=== PATIENT | female | born 1990 | race Caucasian/White ===

== ENCOUNTER 2017-06-16 07:43 | Emergency (ER) | payer BC, MEDICAID, OTHER ==
[2017-06-16 08:35] LABS: ABSOLUTE BASOPHILS # (AUTO) 0.1 10^3/uL (0.0-0.2); ABSOLUTE EOSINOPHILS # (AUTO) 0.1 10^3/uL (0.0-0.6); ABSOLUTE MONOCYTES (AUTO) 0.5 10^3/uL (0.1-1.4); ABSOLUTE NEUT (AUTO) 5.4 10^3/uL (1.7-8.2); EOSINOPHILS % (AUTO) 1.3 % (0-6); HEMATOCRIT 36.4 % (36.0-47.0); LYMPHOCYTES % (AUTO) 33.4 % (13-45); MEAN CORPUSCULAR HEMOGLOBIN 28.7 pg (27.0-33.4); MEAN CORPUSCULAR HGB CONC 33.1 g/dL (32.0-36.0); MEAN CORPUSCULAR VOLUME 87 fl (80-97); MONOCYTES % (AUTO) 5.1 % (3-13); PLATELET COUNT 315 10^3/uL (150-450); RED BLOOD COUNT 4.19 10^6/uL (3.72-5.28); RED CELL DISTRIBUTION WIDTH 15.2 % (11.5-14.0); SEGMENTED NEUTROPHILS % (AUTO) 59.2 % (42-78); TOTAL CELLS COUNTED % (AUTO) 100 %; WHITE BLOOD COUNT 9.1 10^3/uL (4.0-10.5)
[2017-06-16 08:46] LABS: APPEARANCE,URINE SLIGHTLY HAZY; BILIRUBIN,URINE NEGATIVE (NEGATIVE); COLOR,URINE LIGHT YELLOW; GLUCOSE, URINE NEGATIVE (NEGATIVE); KETONES,URINE NEGATIVE (NEGATIVE); LEUKOCYTE ESTERASE,URINE LARGE (NEGATIVE); NITRITE,URINE NEGATIVE (NEGATIVE); PROTEIN,URINE NEGATIVE (NEGATIVE); URINE SPECIFIC GRAVITY 1.021; UROBILINOGEN,URINE NEGATIVE mg/dL (<2.0)
[2017-06-16 08:52] LABS: ANION GAP 12 (5-19); BLOOD UREA NITROGEN 20 mg/dL (7-20); CALCIUM 9.5 mg/dL (8.4-10.2); CARBON DIOXIDE 22 mmol/L (22-30); CHLORIDE 105 mmol/L (98-107); GLUCOSE 89 mg/dL (75-110); POTASSIUM 4.2 mmol/L (3.6-5.0); SODIUM 138.5 mmol/L (137-145)
--- NOTE | 2017-06-16 10:09 | ER Document Report ---
ED Medical Screen (RME) - General Chief Complaint: Blood Pressure Problem Stated Complaint: BLOOD PRESSURE ISSUE, SHORT OF BREATH Notes: 27-year-old female states that she thinks she is maybe 5-6 weeks and is having some high blood pressure and swelling already and wants to be checked out. Also complained of some shortness of breath. No fever chills or sweats. Intermittent cough at times. I have greeted and performed a rapid initial assessment of this patient. A comprehensive ED assessment and evaluation of the patient, analysis of test results and completion of the medical decision making process will be conducted by additional ED providers. TRAVEL OUTSIDE OF THE [place] IN LAST 30 DAYS: No - Related Data Allergies/Adverse Reactions: No Known Allergies Allergy (Unverified 06/16/17 07:44) Past Medical History - General Information source: Patient - Social History Frequency of alcohol use: None Drug Abuse: None Lives with: Spouse/Significant other Family history: Reviewed & Not Pertinent - Past Medical History Cardiac Medical History: Reports: Hx Hypertension - gestational htn, Other - Hypertension in Pulmonary Medical History: Reports: None Neurological Medical History: Reports: None Endocrine Medical History: Reports: None Renal/ Medical History: Reports: None. Denies: Hx Peritoneal Dialysis Malignancy Medical History: Reports: None Past Surgical History: Reports: Hx Appendectomy, Hx Gynecologic Surgery - 1/2 left ovary removed Review of Systems - Review of Systems Constitutional: denies: Fever, Malaise, Weakness EENT: No symptoms reported Cardiovascular: Palpitations, Heart racing, Dyspnea, Lightheaded Respiratory: Short of breath. denies: Hurts to breathe, Wheezing Gastrointestinal: denies: Abdomen distended, Abdominal pain, Diarrhea, Nausea, Vomiting Female Genitourinary: . denies: Vaginal discharge, Vaginal bleeding Musculoskeletal: Ankle swelling. denies: Back pain, Joint pain, Joint swelling , Leg swelling Hematologic/Lymphatic: denies: Anemia, Blood clots, Easy bleeding, Easy bruising Physical Exam - Vital signs Vitals: Temp Pulse Resp BP Pulse Ox 98.4 F 115 H 20 149/90 H 100 06/16/17 07:48 06/16/17 07:48 06/16/17 07:48 06/16/17 07:48 06/16/17 07:48 Interpretation: Normal - Notes Notes: General: Alert no acute distress HEENT: Atraumatic, normocephalic, pupils equal round react to light and accommodation, extraocular muscles are intact, nose is non tender, posterior pharynx is without erythema or exudate. Tongue is unremarkable Heart: Heart with regular rate and rhythm, tachycardia, no murmurs, no rubs, no clicks Lungs: Lungs clear to auscultation bilaterally, no wheezes, rhonchi, rales Abdomen: Abdomen is soft, nontender, nondistended, normal bowel sounds Neuro: cranial nerves II through XII intact, reflexes intact, sensation intact, Extremities:Moving all extremities. Equal strength bilaterally in the upper lower extremities. No significant deformity Skin: No lesions. Skin intact Psych: Normal insight. Normal judgment - General General appearance: Appears well, Alert Course - Vital Signs Vital signs: Temp Pulse Resp BP Pulse Ox 98.4 F 115 H 29 H 139/89 H 100 06/16/17 07:48 06/16/17 07:48 06/16/17 08:05 06/16/17 08:05 06/16/17 08:05 - Laboratory Result Diagrams: 06/16/17 08:20 06/16/17 08:20 Laboratory results interpreted by me: 06/16/17 06/16/17 06/16/17 08:20 08:20 08:20 RDW 15.2 H Beta HCG, Quant 8694.90 H Ur Leukocyte Esterase LARGE H - EKG Interpretation by Ms EKG shows normal: [place], Intervals, QRS Complexes, ST-T Waves Rate: Tachycardia Doctor's Discharge - Discharge Referrals: SAGAR MOHAMUD MD [Primary Care Provider] - Follow up as needed
[2017-06-16 10:53] LABS: NT PRO BNP 19 pg/mL (<125)
[2017-06-16 10:54] LABS: TROPONIN I < 0.012 ng/mL
--- NOTE | 2017-06-16 13:04 | EKG REPORT ---
SEVERITY:- BORDERLINE ECG - SINUS TACHYCARDIA BORDERLINE T WAVE ABNORMALITIES : Confirmed by: Ruben Kevin MD 16-Jun-2017 13:04:07
--- NOTE | 2017-06-16 14:43 | RADIOLOGY REPORT (SQ) ---
EXAM DESCRIPTION: CTA CHEST COMPLETED DATE/TIME: 06/16/2017 2:30 pm REASON FOR STUDY: , short of breath, tachycardia COMPARISON: None. TECHNIQUE: CT scan of the chest performed using helical scanning technique with dynamic intravenous contrast injection. Images reviewed with lung, soft tissue and bone windows. Reconstructed coronal and sagittal MPR images reviewed. Additional 3 dimensional post-processing performed to develop Maximal Intensity Projection images ([place] P). All images stored on PACS. All CT scanners at this facility use dose modulation, iterative reconstruction, and/or weight based d osing when appropriate to reduce radiation dose to as low as reasonably achievable (ALARA). [facility]: Dose Right [facility]: CareDose [facility]: Dose Right [facility]: Teradose 4D [facility]: [employer] CONTRAST TYPE AND DOSE: contrast/concentration: Isovue 370.00 mg/ml; Total Contrast Delivered: 66.0 ml; Total Saline Delivered: 73.0 ml Contrast bolus optimized for the pulmonary arteries. Not diagnostic for the aorta. RENAL FUNCTION: None required. The patient is less than 50 years old. RADIATION DOSE: CT Rad equipment meets quality standard of care and radiation dose reduction techniq ues were employed. CTDIvol: 16.5 - 18.1 mGy. DLP: 570 mGy-cm. . LIMITATIONS: None. FINDINGS: LUNGS AND PLEURA: No masses, infiltrates, pneumothorax. No pleural effusions, calcificati ons. AORTA AND GREAT VESSELS: No aneurysm. Contrast bolus not optimized for the aorta. HEART: No pericardial effusion. No significant coronary artery calcifications. PULMONARY ARTERIES: No emboli visualized in the main pulmonary arteries or the segmental branches. HILAR AND MEDIASTINAL STRUCTURES: No identified masses or abnormal nodes. HARDWARE: None in the chest. UPPER ABDOMEN: No significant findings. Limited exam. THYROID AND OTHER SOFT TISSUES: No masses. No adenopathy. BONES: No acute or significant finding. 3D MIPS: Confirm above findings. OTHER: No other significant finding. IMPRESSION: NORMAL CTA OF THE CHEST. NO PULMONARY EMBOLI. COMMENT: Quality ID # [id number]: Final reports with documentation of one or more dose reduction techniques (e.g., Automated exposure control, adjustment of the mA and/or kV according to patient size, use of iterative reconstruction technique) TECHNICAL DOCUMENTATION: JOB ID: [id number] [employer]- All Rights Reserved Reading location - IP/workstation name: [email or web address]
--- NOTE | 2017-06-16 15:32 | ER Document Report ---
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 Patient is approximately 5 weeks , G5, P2, A2. 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 he is not having any vaginal bleeding is or symptoms suggestive of a problem with the .. She has been dizzy for a few weeks, but all these other symptoms began yesterday. She went to her mother 's house where she had her blood pressure checked and it was slightly elevated. Patient also comments that she has gained about 10 pounds over the past 3 weeks. She recalls that when she had a done about a week ago, her blood pressure at that time was 146/97. She and her mother have a sheet with several recorded blood pressure readings over the past day or 2. TRAVEL OUTSIDE OF THE [place] IN LAST 30 DAYS: No - Related Data Allergies/Adverse Reactions: No Known Allergies Allergy (Unverified 06/16/17 07:44) Past Medical History - General Information source: Patient - Social History Smoking Status: Unknown if Ever Smoked Frequency of alcohol use: None Drug Abuse: None Lives with: Spouse/Significant other Family History: Reviewed & Not Pertinent Patient has suicidal ideation: No Patient has homicidal ideation: No - Past Medical History Cardiac Medical History: Reports: Hx Hypertension - gestational htn, Other - Hypertension in Pulmonary Medical History: Reports: None Neurological Medical History: Reports: None Endocrine Medical History: Reports: None, Other - Gestational diabetes. Renal/ Medical History: Reports: None Malignancy Medical History: Reports: None Past Surgical History: Reports: Hx Appendectomy, Hx Gynecologic Surgery - 1/2 left ovary removed, Hx Herniorrhaphy Review of Systems - Review of Systems Notes: REVIEW OF SYSTEMS: CONSTITUTIONAL : Denies fever. EENT: Denies eye, ear, nose or mouth or throat pain or other symptoms. CARDIOVASCULAR: Denies chest pain. Feel she is swollen around her ankles, but not above, not in the lower legs. RESPIRATORY: Does complain of feeling some shortness of breath. GASTROINTESTINAL: Denies abdominal pain or nausea, vomiting, or diarrhea. GENITOURINARY: Denies difficulty or painful urinating, urinary frequency, blood in urine. MUSCULOSKELETAL: Denies back or neck pain. Denies joint pain or swelling. SKIN: Denies rash or skin lesions. NEUROLOGICAL: Denies LOC or altered mental status. Denies headache. Denies sensory loss or motor deficits. ALL OTHER SYSTEMS REVIEWED AND NEGATIVE. Physical Exam - Vital signs Vitals: Temp Pulse Resp BP Pulse Ox 98.4 F 115 H 20 149/90 H 100 06/16/17 07:48 06/16/17 07:48 06/16/17 07:48 06/16/17 07:48 06/16/17 07:48 Interpretation: Tachycardic - Notes Notes: PHYSICAL EXAMINATION: GENERAL: Well-appearing, in no acute distress. No hypoxia. HEAD: Atraumatic, normocephalic. EYES: Pupils equal round and reactive to light, extraocular movements intact. ENT: oropharynx clear without exudates. Moist mucous membranes. NECK: Normal range of motion, supple. LUNGS: Breath sounds clear and equal bilaterally. HEART: Regular rate and rhythm without murmurs. ABDOMEN: Soft, nontender. No guarding or rebound. No masses. BACK: No tenderness throughout entire back. EXTREMITIES: Normal range of motion without pain. No pain or tenderness in the lower legs and negative Homans bilaterally. NEUROLOGICAL: Normal speech, normal gait. Normal sensory, motor, and reflex exams. Awake, alert, and oriented x3. Cranial nerves normal. PSYCH: Normal mood, normal affect. SKIN: Warm, dry, no rashes. Course - Re-evaluation Re-evalutation: 06/16/17 19:58 Discussed the case with the [employer] [employer] [facility] on-call, Dr. Marcelino, and she recommended putting the patient on Procardia XL 30 mg daily and have them see her in the office next week for recheck. Regarding the potential for a pulmonary embolus, she reassured that the fetus has very little exposure to radiation in the pelvis and adding a lead apron gives even more protection. I discussed this with the patient and her mother and they are agreeable to having the CT scan done. Scan was done in showed no pulmonary emboli. - Vital Signs Vital signs: Temp Pulse Resp BP Pulse Ox 98.8 F 115 H 15 130/74 H 100 06/16/17 15:48 06/16/17 07:48 06/16/17 15:00 06/16/17 14:01 06/16/17 15:00 - Laboratory Result Diagrams: 06/16/17 08:20 06/16/17 08:20 Laboratory results interpreted by me: 06/16/17 06/16/17 06/16/17 08:20 08:20 08:20 RDW 15.2 H Beta HCG, Quant 8694.90 H Ur Leukocyte Esterase LARGE H Discharge - Discharge Clinical Impression: Hypertension, , UTI (urinary tract infection) Condition: Stable Disposition: HOME, SELF-CARE Additional Instructions: HIGH BLOOD PRESSURE REQUIRING TREATMENT: Your blood pressure is high. This is called "hypertension." Today's reading was 149/90 (normal is less than 140/90). Your history and exam suggest that this is not a temporary problem. You need treatment of your blood pressure. If left untreated, high blood pressure greatly increases your risk of heart attack and stroke. Please don't ignore this problem. If you have blood pressure medicine but aren't using it regularly, start taking it again. Some simple things you can do to help are: Get some aerobic exercise for at least 20 minutes on a daily basis. (See your doctor before beginning any new exercise program.) Eat a low-fat diet. Lose excess weight. Avoid salty foods and avoid adding salt to any of the foods you eat. Avoid diet pills, decongestants, "energizing" herbs, and other medicines that elevate blood pressure. There are many different medicines that treat blood pressure. If your medication causes unpleasant side effects, call your doctor. There are others you can try. Treating hypertension is a life-long investment in your health. CALCIUM CHANNEL BLOCKERS: A medication of the calcium channel sukumar type has been prescribed for you. Examples of this type of medicine are Calan, Isoptin, Procardia, and Cardizem. These medicines have a variety of uses, including prevention of angina attacks, treatment of blood pressure, regulation of certain heart rhythm problems, and prevention of migraine headaches. Calcium channel blockers work by interfering with the flow of calcium in cell membranes. This results in dilation of blood vessels, and slowing of electrical conduction in the heart. A slight dizziness (due to a fall in blood pressure) may occur with the first dose, and sometimes even with later doses. This may make you prone to dizziness if you stand up suddenly. Call the doctor if lightheadedness is severe, or if you develop palpitations, shortness of breath, or any other new or alarming symptoms. URINARY TRACT INFECTION: Your evaluation indicates that you have a urinary tract infection. This is due to germs growing in the bladder. This is a common problem. This infection usually responds quickly to antibiotics. Your antibiotic should be taken exactly as prescribed. Drink plenty of fluids -- three to four quarts a day. Occasionally, a bladder anesthetic will be prescribed to help stop the feeling of urgency until the antibiotic has a chance to clear the infection. This may cause your urine to be dark orange. Certain urine infections require a culture. If the doctor obtained a culture, the results will be back in two days. You should call to see if a change in treatment is needed. A repeat urinalysis after you finish treatment is often recommended. The physician will let you know if further testing is required. Call the doctor if you develop fever, chills, flank pain, inability to urinate, or blood in the urine. ANTIBIOTIC THERAPY: You have been given an antibiotic prescription. It's important that you take all the medication, unless instructed otherwise by your physician. Failure to complete the entire course can result in relapse of your condition. Common side effects of antibiotics include nausea, intestinal cramping, or diarrhea. Women may develop vaginal yeast infections, and babies can get yeast (thrush) in the mouth following the use of antibiotics. Contact your physician if you develop significant side effects from this medication. Allergy to this antibiotic can result in hives, wheezing, faintness, or itching. If symptoms of allergy occur, stop the medication and call the doctor. NITROFURANTOIN (MACRODANTIN, MACROBID): You have received a prescription for nitrofurantoin (Macrodantin). This antibiotic is used for urinary tract infections. Women who are or nursing should notify the physician before taking this medicine. If you have ever had a problem caused by this medication in the past, be sure the physician is aware of it. Common side effects of this medicine include nausea, vomiting, or decreased appetite. Notify your physician if these side effects become severe. Immediately stop this medicine and call the physician if you develop cough , shortness of breath, chest pain, weakness, jaundice (yellow color of the skin and whites of the eyes), or a skin rash. You are . care is best started as early in as possible. If you're unsure about continuing this , you should discuss this with your physician or with sampler radioactive [facility] at [facility]. You should take only medications approved by your physician. Acetaminophen can safely be taken for minor pains. As a rule, medication for chronic conditions such as asthma or seizures can safely be continued. You should discuss with the physician every medicine you take. Any regular exercise program can be continued. Talk to your physician, however, before engaging in competitive or demanding sports. Alcohol, smoking, and "street drugs" are dangerous to your baby. Cocaine is especially dangerous. Don't use any illicit drugs! FOLLOW-UP CARE: If you have been referred to a physician for follow-up care, call the physician s office for an appointment as you were instructed or within the next two days. If you experience worsening or a significant change in your symptoms, notify the physician immediately or return to the Emergency Department at any time for re-evaluation. Call the office of the local [facility]POR[facility]ELOPMENT INTERN group Tuesday for them to schedule you with a recheck and follow-up appointment. Call the local [facility] group Tuesday to schedule a follow-up appointment to recheck your blood pressure and adjust medications if needed. Prescriptions: Nifedipine [Procardia Xl 30 mg Tablet] 30 mg PO DAILY #30 tab.er.24 Nitrofurantoin/Nitrofuran Mac [Macrobid 100 mg Capsule] 1 tab PO BID #10 capsule Referrals: SAGAR MOHAMUD MD [Primary Care Provider] - Follow up in 3-5 days
[2017-06-16 15:49] VITALS: BP 130/74
== END 2017-06-16 15:50 | disposition home or self-care (01) ==
LOC: ER 07:43
DX: O16.9 Unspecified maternal hypertension, unspecified trimester (principal); O26.899 Other specified pregnancy related conditions, unspecified trimester; R06.02 Shortness of breath; R53.1 Weakness; O23.40 Unspecified infection of urinary tract in pregnancy, unspecified trimester; Z3A.00 Weeks of gestation of pregnancy not specified; Z86.32 Personal history of gestational diabetes
CPT/HCPCS: 36415; 71275; 80048; 81001; 83880; 84484; 84702; 85025; 87086; 93005; 93010; 99284

== ENCOUNTER → 2017-06-24 | Outpatient (CLI) | payer MEDICAID ==
[2017-06-24 16:59] LABS: ALANINE AMINOTRANSFERASE 24 U/L (9-52); ALBUMIN 3.9 g/dL (3.5-5.0); ALKALINE PHOSPHATASE 40 U/L (38-126); ANION GAP 10 (5-19); ASPARTATE AMINO TRANSFERASE 15 U/L (14-36); BLOOD UREA NITROGEN 11 mg/dL (7-20); CALCIUM 9.5 mg/dL (8.4-10.2); CARBON DIOXIDE 27 mmol/L (22-30); CHLORIDE 102 mmol/L (98-107); GLUCOSE 108 mg/dL (75-110); LDH 307 U/L (313-618); POTASSIUM 4.2 mmol/L (3.6-5.0); SODIUM 139.4 mmol/L (137-145); URIC ACID 4.3 mg/dL (2.5-6.2)
[2017-06-24 17:29] LABS: BILIRUBIN,DIRECT 0.1 mg/dL (0.0-0.4); BILIRUBIN,TOTAL 0.1 mg/dL (0.2-1.3)
== END ==
LOC: OCH 15:55
PROVIDERS: ATTEND Nurse Practitioner Women's Health
DX: Z34.81 Encounter for supervision of other normal pregnancy, first trimester (principal)
CPT/HCPCS: 36415; 80053; 83615; 84550

== ENCOUNTER → 2017-07-05 | Outpatient (CLI) | payer MEDICAID ==
--- NOTE | 2017-07-05 16:00 | RADIOLOGY REPORT (SQ) ---
EXAM DESCRIPTION: U/S [id number] TRNABD 1GES W/ODOP COMPLETED DATE/TIME: 07/05/2017 3:46 pm REASON FOR STUDY: Z34.81 ENCOUNTER FOR SUPRVSN OF NORMAL , FIRST TRIMESTER Z34.81 ENCOUNTE R FOR SUPRVSN OF NORMAL , FIRST TRIM COMPARISON: None. TECHNIQUE: Transabdominal static and realtime grayscale images acquired of the pelvis. Additional se lected spectral and color Doppler images recorded. All images stored on PACs. bHCG: Not applicable. LIMITATIONS: None. FINDINGS: FETUS: Living intrauterine . EGA: 8 week. ARVIND: 02/14/2018. FHR: 182 beats per minute. SUBCHORIONIC BLEED: No. SIZE OF BLEED: Not applicable. UTERUS: No masses. No anomalies. CERVICAL LENGTH: 2.9 cm. Closed. RIGHT ADNEXA: Normal ovary with normal vascular flow. No adnexal free fluid. No adnexal masses. LEFT ADNEXA: Normal ovary with normal vascular flow. No adnexal free fluid. No adnexal masses. FREE FLUID: None. OTHER: No other significant finding. IMPRESSION: LIVING INTRAUTERINE . EGA 8 WEEK. Trimester of : First - 0 to 13 weeks. TECHNICAL DOCUMENTATION: JOB ID: [id number] [employer]- All Rights Reserved Reading location - IP/workstation name: [email or web address]
== END ==
LOC: RAD 14:58
PROVIDERS: ATTEND Nurse Practitioner Women's Health
DX: Z34.81 Encounter for supervision of other normal pregnancy, first trimester (principal)
CPT/HCPCS: 76801

== ENCOUNTER → 2017-09-23 | Outpatient (CLI) | payer MEDICAID | LOC: OD 16:54 | PROVIDERS: ATTEND Obstetrics & Gynecology | DX: Z36.89 Encounter for other specified antenatal screening (principal) | CPT/HCPCS: 36415; 82105 ==

== ENCOUNTER 2017-11-18 16:48 | Outpatient (CLI) | payer MEDICAID | END 2017-11-18 18:00 | disposition home or self-care (01) | LOC: LC 16:48 | PROVIDERS: ATTEND Obstetrics & Gynecology | DX: O36.8120 Decreased fetal movements, second trimester, not applicable or unspecified (principal); Z3A.27 27 weeks gestation of pregnancy ==

== ENCOUNTER 2017-11-22 00:12 | Outpatient (CLI) | payer MEDICAID ==
[2017-11-22] MEDS ORDERED: RINGERS SOLUTION,LACTATED 1,000 ML IV ONE ×2 (01:07→02:18)
[2017-11-22 02:47] LABS: APPEARANCE,URINE SLIGHTLY-CLOUDY; BILIRUBIN,URINE NEGATIVE (NEGATIVE); COLOR,URINE YELLOW; GLUCOSE, URINE NEGATIVE (NEGATIVE); KETONES,URINE NEGATIVE (NEGATIVE); LEUKOCYTE ESTERASE,URINE MODERATE (NEGATIVE); NITRITE,URINE NEGATIVE (NEGATIVE); PROTEIN,URINE NEGATIVE (NEGATIVE); URINE SPECIFIC GRAVITY 1.006; UROBILINOGEN,URINE NEGATIVE mg/dL (<2.0)
[2017-11-22 02:59] LABS: URINE AMPHETAMINES SCREEN NEGATIVE; URINE BARBITURATES SCREEN NEGATIVE; URINE BENZODIAZEPINES SCREEN NEGATIVE; URINE COCAINE SCREEN NEGATIVE; URINE MARIJUANA (THC) SCREEN NEGATIVE; URINE METHADONE SCREEN NEGATIVE; URINE PHENCYCLIDINE SCREEN NEGATIVE
== END 2017-11-22 03:15 | disposition home or self-care (01) ==
LOC: LC 00:12
PROVIDERS: ATTEND Student in an Organized Health Care Education/Training Program
DX: O26.92 Pregnancy related conditions, unspecified, second trimester (principal); Z3A.27 27 weeks gestation of pregnancy; E86.0 Dehydration; R19.7 Diarrhea, unspecified
CPT/HCPCS: 80307; 81001

== ENCOUNTER 2018-01-13 16:33 | Outpatient (CLI) | payer MEDICAID ==
[2018-01-13] MEDS ORDERED: RINGERS SOLUTION,LACTATED 1,000 ML IV PRN (17:00)
[2018-01-13] MEDS ORDERED: RINGERS SOLUTION,LACTATED 1,000 ML IV ONE (17:00)
[2018-01-13 17:36] LABS: APPEARANCE,URINE CLEAR; BILIRUBIN,URINE NEGATIVE (NEGATIVE); COLOR,URINE STRAW; GLUCOSE, URINE 50 mg/dL (NEGATIVE); KETONES,URINE NEGATIVE (NEGATIVE); LEUKOCYTE ESTERASE,URINE SMALL (NEGATIVE); NITRITE,URINE NEGATIVE (NEGATIVE); PROTEIN,URINE NEGATIVE (NEGATIVE); URINE SPECIFIC GRAVITY 1.005; UROBILINOGEN,URINE NEGATIVE mg/dL (<2.0)
[2018-01-13 17:50] LABS: URINE AMPHETAMINES SCREEN NEGATIVE; URINE BARBITURATES SCREEN NEGATIVE; URINE BENZODIAZEPINES SCREEN NEGATIVE; URINE COCAINE SCREEN NEGATIVE; URINE MARIJUANA (THC) SCREEN NEGATIVE; URINE METHADONE SCREEN NEGATIVE; URINE PHENCYCLIDINE SCREEN NEGATIVE
--- NOTE | 2018-01-13 18:26 | RADIOLOGY REPORT (SQ) ---
EXAM DESCRIPTION: U/S OB LIMITED COMPLETED DATE/TIME: 01/13/2018 6:14 pm REASON FOR STUDY: Repeat CATRACHITA, decreased amniotic fluid COMPARISON: 07/05/2017 TECHNIQUE: Limited transabdominal grayscale ultrasound for evaluation of specific requested obstetri kayleigh parameters. LIMITATIONS: None. FINDINGS: CERVICAL LENGTH: 3.5 cm. Closed. CATRACHITA: Low, 4.2 cm. FHR: 141 beats per minute. PRESENTATION: Cephalic. PLACENTA: Posterior. ANATOMY: Not assessed OTHER: No other significant findings. IMPRESSION: LIMITED OBSTETRICAL ULTRASOUND WITH MEASURED PARAMETERS DELINEATED ABOVE. Trimester of : 3rd TECHNICAL DOCUMENTATION: JOB ID: [id number] [employer]- All Rights Reserved Reading location - IP/workstation name: [email or web address]
--- NOTE | 2018-01-13 19:16 | Non Stress Test Report ---
Non Stress Test Datetime Report Generated by CPN: 01/13/2018 19:15 DEMOGRAPHIC EGA NST: 35.3 EGA NST: 27.3 INDICATION Indication for Study: Ordered by Provider Indication for Study (NST) Other: oligo Indication for Study (NST) Other: patient does not need nst at 27 weeks MONITORING Monitor Explained: Monitor Explained; Test Explained; Patient Verbalized Understanding Time on Monitor: 01/13/2018 17:16 Time on Monitor: 11/18/2017 17:00 Time off Monitor: 01/13/2018 17:36 NST Duration: 20 NST INTERVENTIONS NST Interventions: PO Hydration; IV Fluids NST Interventions: None BABY A: [id number] BABY A Movement : Present Contraction Frequency : 0 Contraction Frequency : 0 FHR Baseline : 145 FHR Baseline : 145 Accelerations : 15X15 Accelerations : 15X15 Decelerations : None Decelerations : None Variability : Moderate 6-25bpm Variability : Moderate 6-25bpm NST Review: Meets Criteria for Reactive NST NST Review and Verified By : B Baidy RN NST Results: Reactive NST Results: Reactive NST REPORT Report Trigger: Send Report
== END 2018-01-13 19:13 | disposition home or self-care (01) ==
LOC: LC 16:33
PROVIDERS: ATTEND Obstetrics & Gynecology Gynecology
PROC: 4A1HXCZ Monitoring of Products of Conception, Cardiac Rate, External Approach (ICD-10-PCS; principal; 2018-01-13)
DX: O26.833 Pregnancy related renal disease, third trimester (principal); Z3A.35 35 weeks gestation of pregnancy
CPT/HCPCS: 59025; 76815; 80307; 81001; 84112

== ENCOUNTER 2018-01-15 11:29 | Outpatient (CLI) | payer MEDICAID ==
--- NOTE | 2018-01-15 12:11 | Non Stress Test Report ---
Non Stress Test Datetime Report Generated by CPN: 01/15/2018 12:11 DEMOGRAPHIC EGA NST: 35.5 INDICATION Indication for Study: Ordered by Provider MONITORING Monitor Explained: Monitor Explained; Test Explained; Patient Verbalized Understanding Time on Monitor: 01/15/2018 11:41 Time off Monitor: 01/15/2018 12:05 NST Duration: 24 NST INTERVENTIONS NST Interventions: None Physician Notified NST: Dr. Rosales BABY A: [id number] BABY A Movement : Present Contraction Frequency : none FHR Baseline : 150 Accelerations : 15X15 Decelerations : None Variability : Moderate 6-25bpm NST Review: Meets Criteria for Reactive NST NST Review and Verified By : OMAIRA Chino Results: Reactive NST REPORT Report Trigger: Send Report
--- NOTE | 2018-01-15 12:32 | RADIOLOGY REPORT (SQ) ---
EXAM DESCRIPTION: U/S OB LIMITED COMPLETED DATE/TIME: 01/15/2018 12:20 pm REASON FOR STUDY: CATRACHITA COMPARISON: None. TECHNIQUE: Limited transvaginal grayscale ultrasound for evaluation of specific requested obstetrica l parameters. LIMITATIONS: None. FINDINGS: CATRACHITA is 12.0. heart rate 147. Vertex presentation. IMPRESSION: LIMITED OBSTETRICAL ULTRASOUND WITH MEASURED PARAMETERS DELINEATED ABOVE. Trimester of : Third trimester - 28 weeks to delivery. TECHNICAL DOCUMENTATION: JOB ID: [id number] [employer]- All Rights Reserved Reading location - IP/workstation name: [email or web address]
== END 2018-01-15 12:38 | disposition home or self-care (01) ==
LOC: LC 11:29
PROVIDERS: ATTEND Obstetrics & Gynecology Gynecology
PROC: 4A1HXCZ Monitoring of Products of Conception, Cardiac Rate, External Approach (ICD-10-PCS; principal; 2018-01-15)
DX: O26.833 Pregnancy related renal disease, third trimester (principal); R34 Anuria and oliguria; Z3A.35 35 weeks gestation of pregnancy
CPT/HCPCS: 59025; 76815

== ENCOUNTER 2018-02-01 07:01 | Inpatient (IN) | payer MEDICAID ==
[2018-02-01] MEDS ORDERED: RINGERS SOLUTION,LACTATED 300 ML IV ONE (07:25)
[2018-02-01] MEDS ORDERED: OXYTOCIN/NORMAL SALINE 20 UNIT/1,000 ML RTUINJ IV PRN ×2 (07:25→19:54)
[2018-02-01 07:49] LABS: APPEARANCE,URINE SLIGHTLY-CLOUDY; BILIRUBIN,URINE NEGATIVE (NEGATIVE); COLOR,URINE YELLOW; GLUCOSE, URINE 50 mg/dL (NEGATIVE); KETONES,URINE NEGATIVE (NEGATIVE); LEUKOCYTE ESTERASE,URINE SMALL (NEGATIVE); NITRITE,URINE NEGATIVE (NEGATIVE); PROTEIN,URINE NEGATIVE (NEGATIVE); URINE SPECIFIC GRAVITY 1.024; UROBILINOGEN,URINE NEGATIVE mg/dL (<2.0)
[2018-02-01 07:55] LABS: ABSOLUTE BASOPHILS # (AUTO) 0.1 10^3/uL (0.0-0.2); ABSOLUTE EOSINOPHILS # (AUTO) 0.1 10^3/uL (0.0-0.6); ABSOLUTE LYMPHOCYTES (AUTO) 1.8 10^3/uL (0.5-4.7); ABSOLUTE MONOCYTES (AUTO) 0.6 10^3/uL (0.1-1.4); ABSOLUTE NEUT (AUTO) 5.5 10^3/uL (1.7-8.2); BASOPHILS % (AUTO) 0.7 % (0-2); EOSINOPHILS % (AUTO) 0.7 % (0-6); HEMATOCRIT 31.7 % (36.0-47.0); HEMOGLOBIN 10.5 g/dL (12.0-15.5); LYMPHOCYTES % (AUTO) 22.8 % (13-45); MEAN CORPUSCULAR HEMOGLOBIN 28.7 pg (27.0-33.4); MEAN CORPUSCULAR HGB CONC 33.3 g/dL (32.0-36.0); MEAN CORPUSCULAR VOLUME 86 fl (80-97); MONOCYTES % (AUTO) 7.4 % (3-13); PLATELET COUNT 239 10^3/uL (150-450); RED BLOOD COUNT 3.67 10^6/uL (3.72-5.28); RED CELL DISTRIBUTION WIDTH 19.9 % (11.5-14.0); SEGMENTED NEUTROPHILS % (AUTO) 68.4 % (42-78); TOTAL CELLS COUNTED % (AUTO) 100 %
[2018-02-01 08:10] LABS: URINE AMPHETAMINES SCREEN NEGATIVE; URINE BARBITURATES SCREEN NEGATIVE; URINE BENZODIAZEPINES SCREEN NEGATIVE; URINE COCAINE SCREEN NEGATIVE; URINE MARIJUANA (THC) SCREEN NEGATIVE; URINE METHADONE SCREEN NEGATIVE; URINE PHENCYCLIDINE SCREEN NEGATIVE
--- NOTE | 2018-02-01 08:15 | Admission Physical ---
Datetime Report Generated by CPN: 02/01/2018 08:15 CURRENT ADMISSION Chief Complaint: Scheduled Induction of Labor Indication for Induction: Chronic Primary/Essential HTN; Maternal Diabetes Admit Impression : Term, Intrauterine ; Induction of Labor Admit Plan: Admit to Unit ALLERGIES Medication Allergies: No Medication Allergies: No Known Allergies (02/01/2018) Latex: No Latex Allergies Food Allergies: none Environmental Allergies: none OBSTETRICAL HISTORY EDC: 02/14/2018 00:00 : 5 Para: 2 Term: 2 : 0 SAB: 2 IAB: 0 Ectopic: 0 Livin Cesareans: 0 VBACs: 0 Multiple Births: 0 Gestational Diabetes: Yes Rh Sensitization: No Incompetent Cervix: No SABINO: No Infertility: No ART Treatment: No Uterine Anomaly: No IUGR: No Hx Previous C/S: No Macrosomia: No Hx Loss/Stillborn: No PIH: Yes Hx : No Placenta Previa/Abruption: No Depression/PP Depression: No PTL/PROM: No Post Hemorrhage: No Current Procedures: Ultrasound; NST Obstetrical History Comments: G1 - 2007 SAB G2 - 2008 SAB G3 - 2010 Boy Vaccuum Assist 7 lb 9 oz G4 - 2014 Gril 6 lb G5 - current GDM on glyburide, PIH SEE RECORDS Alcohol: No Marijuana : No Cocaine: No Other Illicit Drugs: No Cigarettes: Former Smoker. 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: Yes Heart Disease: No Hosp/Surgery: Yes Autoimmune Disorder: No Anesthetic Complications: No Kidney Disease: No Abnormal Pap Smear: No Neuro/Epilepsy: No Psychiatric Disorders: No Other Medical Diseases: No Hepatitis/Liver Disease: No Significant Family History: No Varicosities/Phlebitis: No Trauma/Violence : No Thyroid Dysfunction: No Medical History Comments: childbirth x2, 2005 appendectomy, hernia repair, 1/2 left ovary removed INFECTIOUS HISTORY Gonorrhea: No Genital Herpes: No Chlamydia: No Tuberculosis: No Syphilis: No Hepatitis: No HIV/AIDS Exposure: No Rash or Viral Illness: No HPV: Yes PHYSICAL EXAM General: Normal HEENT: Normal Neurologic: Normal Thyroid: Normal Heart: Normal Lungs: Normal Breast: Normal Back: Normal Abdomen: Normal Genitourinary Exam: Normal Extremities: Normal DTRs: Normal Pelvic Type: Adequate Vital Signs: Reviewed; Within Normal Limits MEMBRANES Membranes: Intact FETUS A EGA: 38.1 Monitoring: External US FHR- Baseline: 145 Variability: Moderate 6-25bpm Accelerations: 15X15 Decelerations: None FHR Category: Category I Admit Comment: here for IOL due to GDM and CHTN at 38.1 wks, GBS negative. Pt doing well this morning, no complaints. PLan Pitocin for IOL then AROM once making cervical change.Pt is planning an epidural when in laboer. VE in the office . Vtx on Leapold's this morning. Attending MD today is Dr Marcelino PLANS FOR LABOR AND DELIVERY Labor and Delivery: None Pain Management: Epidural Feeding Preference: Both Circumcision: N/A INFORMED CONSENT Assignment: Mary Marcelino MD Signature: with User ID: [email or web address] : with User ID: [email or web address]
[2018-02-01] MEDS ORDERED: LIDOCAINE 1% INJ-PF (10 MG/ML) 30 ML SDV ONE (08:29)
[2018-02-01] MEDS ORDERED: MISOPROSTOL 0.2 MG TABLET ONE (08:29)
[2018-02-01] MEDS ORDERED: OXYTOCIN/NORMAL SALINE 20 UNIT/1,000 ML RTUINJ ONE (08:29)
[2018-02-01 08:42] LABS: RUBELLA INTERPRETATION POSITIVE
[2018-02-01] MEDS: RINGERS SOLUTION,LACTATED 1,000 ML IV PRN ×2 (08:44→18:19)
[2018-02-01] MEDS ORDERED: GLYBURIDE 2.5 MG TABLET PO ONE (09:30)
--- NOTE | 2018-02-01 14:11 | L&D Progress Notes ---
PROGRESS NOTES Datetime Report Generated by CPN: 02/01/2018 14:10 PROGRESS NOTE Impression: Reassuring Heart Rate Procedures: Sterile Vag Exam Plan: Continue Present Management; Induction Plan Other: Pitocin Vital Signs : Reviewed; Within Normal Limits Comment: Pt remains comfortable, Pitocin infusing. Position changes encouraged. Plan AROM once pt voids. Attending MD is Dr Marcelino VAGINAL EXAM Dilatation: 3 Effacement: 50 Station: -3 LAST VAGINAL EXAM-NURSING Dilitation: 3.0 Dilitation: 4.0 Effacement: 50 Effacement: 50 Station: -2 Station: -4 Contractions: TOCO ADJUSTED RN AT BEDSIDE Contractions: TOCO ADJUSTED RN AT BEDSIDE Contractions: UTD TOCO ADJUSTED Contractions: UTD, TOCO ADJUSTED RN AT BEDSIDE MEMBRANES Membranes: Intact Membranes: Intact FETUS A FHR - Baseline: 145 Monitoring: External US Variability: Moderate 6-25bpm Accelerations: 15X15 Decelerations: None FHR Category: Category I : 38.1 SIGNATURE SIGNATURE: [id number];[id number];[id number] SIGNATURE: [id number];14,[id number] SIGNATURE: [id number] SIGNATURE: [id number] Assignment: Mary Marcelino MD Signature: with User ID: [email or web address] : with User ID: [email or web address]
[2018-02-01] MEDS ORDERED: EPHEDRINE SULFATE INJ 50 MG/1 ML AMPULE ONE (14:57)
[2018-02-01] MEDS ORDERED: BUPIVACAINE HCL 0.5 % INJ/PF 30 ML SDV ONE (14:57)
[2018-02-01] MEDS ORDERED: FENTANYL/BUPIVACAINE/NS/PF 300 MCG/150 ML RTUINJ EPI ONE (14:57)
--- NOTE | 2018-02-01 16:27 | L&D Progress Notes ---
PROGRESS NOTES Datetime Report Generated by CPN: 02/01/2018 16:27 PROGRESS NOTE Impression: Reassuring Heart Rate Procedures: Artificial ROM; Sterile Vag Exam; Epidural Placement Plan: Continue Present Management; Induction; Anticipate Vaginal Delivery Vital Signs : Reviewed; Within Normal Limits Comment: Pt comfortable with the epidural. Pitocin infusing. AROM w/ blood tinged clear fluid. Position changes encouraged. Anticipate VAGINAL EXAM Dilatation: 4 Effacement: 50 Station: -2 Contractions: q 3-4 Dilitation: 4.0 Effacement: 50 Station: -2 MEMBRANES Membranes: Ruptured Amniotic Fluid Color: Bloody FETUS A FHR - Baseline: 140 Monitoring: External US Variability: Moderate 6-25bpm Accelerations: 15X15 Decelerations: None FETUS C SIGNATURE: [id number];14,[id number];10,[id number] Assignment: Mary Marcelino MD Signature: with User ID: [email or web address] : with User ID: [email or web address]
[2018-02-01] MEDS ORDERED: ACETAMINOPHEN 325 MG TABLET PO PRN (19:54)
[2018-02-01] MEDS ORDERED: MISOPROSTOL 0.2 MG TABLET PR PRN (19:54)
[2018-02-01] MEDS ORDERED: BENZOCAINE/MENTHOL AEROSOL SPRAY 56 ML TOP PRN (19:54)
[2018-02-01] MEDS ORDERED: ZOLPIDEM TARTRATE 5 MG TABLET PO PRN (19:54)
[2018-02-01] MEDS ORDERED: GLYCERIN/WITCH HAZEL LEAF 1 EACH MED..PAD TP PRN (19:54)
[2018-02-01] MEDS ORDERED: PROMETHAZINE HCL 25 MG TABLET PO PRN (19:54)
[2018-02-01] MEDS ORDERED: DIPHENHYDRAMINE HCL 25 MG CAPSULE PO PRN (19:54)
[2018-02-01] MEDS ORDERED: PROMETHAZINE HCL INJ 25 MG/1 ML VIAL IV PRN (19:54)
[2018-02-01] MEDS ORDERED: DIPH/PERTUSS(ACELL)/TETANUS VAC/PF 0.5 ML SYR (>=10YO) IM PRN (19:54)
[2018-02-01] MEDS ORDERED: PROMETHAZINE HCL 25 MG SUPP.RECT PR PRN (19:54)
[2018-02-01] MEDS ORDERED: PSEUDOEPHEDRINE HCL 30 MG TABLET PO PRN (19:54)
[2018-02-01] MEDS ORDERED: ACETAMINOPHEN WITH CODEINE #3 TABLET PO PRN ×2 (19:54)
[2018-02-01] MEDS ORDERED: NA PHOS,M-B/NA PHOS,DI-BA (ADULT) 133 ML ENEMA PR PRN (19:54)
[2018-02-01] MEDS ORDERED: MEASLES,MUMPS&RUBELLA VACC/PF 0.5 ML VIAL SUBCUT PRN (19:54)
[2018-02-01] MEDS ORDERED: MAGNESIUM HYDROXIDE SUSP 30 ML UDCUP PO PRN (19:54)
[2018-02-01] MEDS ORDERED: DIBUCAINE 1% OINTMENT 28 GM TP PRN (19:54)
--- NOTE | 2018-02-01 21:13 | Delivery Summary ---
Del Sum A-C Datetime Report Generated by CPN: 02/01/2018 21:13 DELIVERY PERSONNEL DELIVERY PERSONNEL: [id number] Delivery Doctor:: Mary Marcelino MD Anesthesiologist:: Angel Carroll MD Labor and Delivery Nurse:: Julisa Perez RN Student Observers:: Josie Robison CNA student Machines Technician/[employer]: Diamond Phelps, CONSERVATION SCIENCE TEACHER MATERNAL INFORMATION Delivery Anesthesia: Epidural Medications After Delivery: Pitocin Bolus-Please Comment; Cytotec 1000mcg Per Rectum/Vagina Meds After Delivery Comment: Pitocin 20 units in 1 L NS bolusing per order Maternal Complications: None Provider Comments: VFI delivered in EDWARD presentation. No nuchal cord. Shoulders and body delivered without difficulty. Cord doubly clamped and cut and infant to maternal abdomen. Placenta delivered intact spontaneously. FF at U after uterine resolved with pitocin and cytotec. Mother and baby stable upon provider leaving the room. No perineal lacerations. LABOR SUMMARY EDC: 02/14/2018 00:00 No. Babies in Womb: 1 Attempted: No Labor Anesthesia: Epidural LABOR INFORMATION Reason for Induction: Gestational Hypertension; Maternal Diabetes Onset of Labor: 02/01/2018 16:07 Complete Dilatation: 02/01/2018 18:27 Oxytocin: Induction Group B Beta Strep: negative Antibiotics # of Doses: 0 Antibiotics Time of Last Dose: N/A Name of Antibiotic Given: N/A Steroids Given: None Reason Steroids Not Administered: Not Applicable MEMBRANES Membranes Rupture Method: Artificial Rupture of Membranes: 02/01/2018 16:17 Length of Rupture (hr): 3.23 Amniotic Fluid Color: Clear Amniotic Fluid Amount: Scant Amniotic Fluid Odor: Normal STAGES OF LABOR Stage 1 hr: 2 Stage 1 min: 20 Stage 2 hr: 1 Stage 2 min: 4 Stage 3 hr: 0 Stage 3 min: 4 Total Time in Labor hr: 3 Total Time in Labor min: 28 VAGINAL DELIVERY Episiotomy: None Laceration #1: None Laceration Extension #1: N/A Laceration Repair: Not Applicable Sponge Count Correct: N/A Sharps Count Correct: N/A CSECTION DELIVERY Primary Indication: N/A Secondary Indication: N/A CSection Incidence: N/A Labor: N/A Elective: N/A CSection Incision: N/A BABY A INFORMATION Delivery Date/Time: 02/01/2018 19:31 Method of Delivery: Vaginal Born in Route : No : N/A Forceps: N/A Vacuum Extraction: N/A Shoulder Dystocia : No PRESENTATION/POSITION BABY A Presentation: Cephalic Cephalic Presentation: Vertex Vertex Position: Left Occipital Anterior Breech Presentation: N/A PLACENTA INFORMATION BABY A Placenta Delivery Time : 02/01/2018 19:35 Placenta Method of Delivery: Spontaneous Placenta Status: Delivered SCORES BABY A Heart Rate 1 min: >100 bpm Resp Effort 1 min: Good Cry Reflex Irritability 1 min: Cough or Sneeze or Pulls Away Muscle Tone 1 min: Active Motion Color 1 min: Body [place], Extremities Blue SCORE 1 MIN: 9 Heart Rate 5 min: >100 bpm Resp Effort 5 min: Good Cry Reflex Irritability 5 min: Cough or Sneeze or Pulls Away Muscle Tone 5 min: Active Motion Color 5 min: Body [place], Extremities Blue SCORE 5 MIN: 9 INFANT INFORMATION BABY A Gestational Age at Delivery: 38.1 Gestational Status: Early Term- 37- 38.6 Weeks Outcome : Liveborn Condition : Stable Infant Sex: Female IDENTIFICATION BABY A Infant Verification Date/Time: 02/01/2018 19:46 ID Band Number: [id number] Mother's Name Verified: Yes RN Verifying : ENan Perez RN Additional Verifying Personnel: F. Phelps WEIGHT/LENGTH BABY A Birthweight (gm): 3210 Infant Weight (lb): 7 Infant Weight (oz): 1 Infant Length (in): 19.50 Infant Length (cm): 49.53 CORD INFORMATION BABY A No. Cord Vessels: 3 Nuchal Cord : N/A Cord Blood Taken: Yes-For Storage (Mom's Blood type +) Suction: None ASSESSMENT BABY A Skin to Skin: Yes Skin to Skin Time (min): 60 BABY B INFORMATION : N/A SIGNATURES Signature: with User ID: [email or web address]
[2018-02-01] MEDS ORDERED: IBUPROFEN 800 MG TABLET ONE (21:15)
[2018-02-01] MEDS: IBUPROFEN 800 MG TABLET PO SCH (21:16)
[2018-02-01] MEDS: FAMOTIDINE 20 MG TABLET PO SCH (23:00)
[2018-02-02] MEDS: IBUPROFEN 800 MG TABLET PO SCH ×3 (05:06→21:39)
[2018-02-02 05:41] LABS: HEPATITIS C VIRUS AB <0.1 s/co ratio (0.0-0.9)
[2018-02-02 07:35] LABS: HEPATITS B SURFACE ANTIGEN Negative (Negative)
[2018-02-02 08:48] LABS: HEMATOCRIT 29.8 % (36.0-47.0); HEMOGLOBIN 9.8 g/dL (12.0-15.5); MEAN CORPUSCULAR HEMOGLOBIN 28.6 pg (27.0-33.4); MEAN CORPUSCULAR HGB CONC 33.1 g/dL (32.0-36.0); MEAN CORPUSCULAR VOLUME 87 fl (80-97); PLATELET COUNT 212 10^3/uL (150-450); RED BLOOD COUNT 3.44 10^6/uL (3.72-5.28); RED CELL DISTRIBUTION WIDTH 19.9 % (11.5-14.0); WHITE BLOOD COUNT 12.4 10^3/uL (4.0-10.5)
--- NOTE | 2018-02-02 09:22 | PDOC PROGRESS REPORT ---
Subjective-OB Progress Note for:: 02/02/18 Subjective: Doing well, no c/o, scant lochia, ambulating, breast feeding Physical Exam (OB) Vital Signs: Temp Pulse Resp BP Pulse Ox 97.6 F 73 16 121/72 100 02/02/18 07:38 02/02/18 07:38 02/02/18 07:38 02/02/18 07:38 02/02/18 07:38 Intake & Output 02/01/18 02/02/18 02/03/18 06:59 06:59 06:59 Intake Total 1000 Balance 1000 Weight 73.8 kg - PIH/Pre-Eclampsia DTR's: 1 + Clonus: Negative Headache: Absent Epigastric Pain: No Visual Changes: No - Lochia Lochia Amount: Small 10-25 ml Lochia Color: Rubra/Red - Abdomen Description: Soft, Round Hernia Present: No Fundal Description: Firm, Midline Describe if Not Midline: slight deviation to the right Fundal Height: u/u - u/2 Objective-Diagnostic Laboratory: 02/02/18 08:40 02/02/18 08:40 WBC 12.4 H RBC 3.44 L Hgb 9.8 L Hct 29.8 L MCV 87 MCH 28.6 MCHC 33.1 RDW 19.9 H Plt Count 212 Assessment and Plan(PN) - Assessment and Plan (1) Vaginal delivery Is this a current diagnosis for this admission?: Yes (2) Gestational diabetes mellitus (GDM) controlled on oral hypoglycemic drug Qualifiers: Trimester: second trimester Qualified Code(s): O24.415 - Gestational diabetes mellitus in , controlled by oral hypoglycemic drugs Is this a current diagnosis for this admission?: Yes (3) Gestational hypertension Qualifiers: Trimester: second trimester Qualified Code(s): O13.2 - Gestational [ -induced] hypertension without significant proteinuria, second trimester Is this a current diagnosis for this admission?: Yes - Time Spent with Patient Time with patient: Less than 15 minutes Medications reviewed and adjusted accordingly: Yes - Disposition Anticipated Discharge: Home Within: within 24 hours
[2018-02-02] MEDS: FAMOTIDINE 20 MG TABLET PO SCH ×2 (09:58→21:38)
[2018-02-02] MEDS: DOCUSATE SODIUM 100 MG CAPSULE PO SCH ×2 (09:59→17:46)
[2018-02-02] MEDS: FERROUS SULFATE 325 MG TABLET PO SCH ×2 (09:59→17:44)
[2018-02-02] MEDS: PRENATAL VITAMIN W DHA CAPSULE PO SCH (09:59)
[2018-02-02] MEDS: SENNOSIDES/DOCUSATE 8.6-50 MG 1 EACH TABLET PO SCH (09:59)
[2018-02-02] MEDS ORDERED: FERROUS SULFATE 325 MG TABLET PO SCH (10:00)
[2018-02-03] MEDS: IBUPROFEN 800 MG TABLET PO SCH ×2 (05:48→14:53)
[2018-02-03 09:10] VITALS: BP 116/72
--- NOTE | 2018-02-03 09:52 | PDOC DISCHARGE SUMMARY ---
Final Diagnosis Discharge Date: 02/03/18 - Final Diagnosis (1) Anemia affecting third Is this a current diagnosis for this admission?: Yes (2) Vaginal delivery Is this a current diagnosis for this admission?: Yes (3) Gestational diabetes mellitus (GDM) controlled on oral hypoglycemic drug Is this a current diagnosis for this admission?: Yes (4) Gestational hypertension Is this a current diagnosis for this admission?: Yes Discharge Data - Discharge Medication Prescriptions: Ibuprofen [Motrin 800 mg Tablet] 800 mg PO Q8HP PRN #30 tablet PRN Reason: Abdominal Cramping Docusate Sodium [Colace 100 mg Capsule] 100 mg PO BID #60 capsule Ferrous Sulfate [Feosol 325 mg Tablet] 325 mg PO BID #60 tablet Home Medications: Vit,Calc76/Iron/Folic [Prenatabs Rx Tablet] 1 each PO DAILY 11/18/17 Ferrous Sulfate [Iron] 325 mg PO BID 11/22/17 Nifedipine [Procardia XL 30 mg Tablet] 30 mg PO DAILY 11/22/17 Docusate Sodium [Colace 100 mg Capsule] 100 mg PO BID #60 capsule 02/03/18 Ferrous Sulfate [Feosol 325 mg Tablet] 325 mg PO BID #60 tablet 02/03/18 Ibuprofen [Motrin 800 mg Tablet] 800 mg PO Q8HP PRN #30 tablet 02/03/18 Reason(s) for Admission: Induction of Labor Procedures: NST, Ultrasound Intrapartum Procedure(s): Spontaneous Vaginal Delivery - Diagnosis Test Laboratory: Temp Pulse Resp BP Pulse Ox 97.9 F 92 16 116/72 99 02/03/18 08:18 02/03/18 08:18 02/03/18 08:18 02/03/18 08:18 02/03/18 08:18 02/01/18 02/01/18 02/02/18 07:08 07:29 08:40 RBC 3.67 L 3.44 L Hgb 10.5 L 9.8 L Hct 31.7 L 29.8 L Urine Opiates Screen NEGATIVE - Discharge information/Instructions Discharge Activity: Balance Activity w/Rest, No Lifting Over 10 Pounds, Pelvic Rest, No tub bath, Walk Frequently Discharge Diet: As Tolerated, Regular Disposition: HOME, SELF-CARE Follow up with: [facility] in: 5, Days - blood pressure check
[2018-02-03] MEDS: PRENATAL VITAMIN W DHA CAPSULE PO SCH (10:02)
[2018-02-03] MEDS: SENNOSIDES/DOCUSATE 8.6-50 MG 1 EACH TABLET PO SCH (10:02)
[2018-02-03] MEDS: FERROUS SULFATE 325 MG TABLET PO SCH (10:03)
[2018-02-03] MEDS: FAMOTIDINE 20 MG TABLET PO SCH (10:03)
[2018-02-03] MEDS: DOCUSATE SODIUM 100 MG CAPSULE PO SCH (10:04)
== END 2018-02-03 16:14 | disposition home or self-care (01) | DRG 807 ==
LOC: LR 07:01 → 2S 21:28
PROVIDERS: ADMIT Student in an Organized Health Care Education/Training Program; ATTEND Student in an Organized Health Care Education/Training Program
PROC: 10E0XZZ Delivery of Products of Conception, External Approach (ICD-10-PCS; principal; 2018-02-01)
PROC: 3E0234Z Introduction of Serum, Toxoid and Vaccine into Muscle, Percutaneous Approach (ICD-10-PCS; 2018-02-03)
DX: O10.92 Unspecified pre-existing hypertension complicating childbirth (principal); Z37.0 Single live birth; O24.425 Gestational diabetes mellitus in childbirth, controlled by oral hypoglycemic drugs; O99.02 Anemia complicating childbirth; D64.9 Anemia, unspecified; O99.334 Smoking (tobacco) complicating childbirth; F17.211 Nicotine dependence, cigarettes, in remission; Z3A.38 38 weeks gestation of pregnancy; Z23 Encounter for immunization
CPT/HCPCS: 36415; 80307; 81005; 82962; 85025; 85027; 86592; 86762; 86803; 86804; 86850; 86900; 86901; 87340; 90715; 94760; J2590; J3010; J3490

== ENCOUNTER 2018-03-15 09:46 | Day surgery (SDC) | payer MEDICAID ==
[2018-03-06 10:31] LABS: HEMATOCRIT 40.2 % (36.0-47.0); HEMOGLOBIN 13.3 g/dL (12.0-15.5); MEAN CORPUSCULAR HEMOGLOBIN 28.6 pg (27.0-33.4); MEAN CORPUSCULAR HGB CONC 33.2 g/dL (32.0-36.0); MEAN CORPUSCULAR VOLUME 86 fl (80-97); PLATELET COUNT 255 10^3/uL (150-450); RED BLOOD COUNT 4.66 10^6/uL (3.72-5.28); WHITE BLOOD COUNT 6.6 10^3/uL (4.0-10.5)
[2018-03-06 10:38] LABS: APPEARANCE,URINE SLIGHTLY-CLOUDY; BILIRUBIN,URINE NEGATIVE (NEGATIVE); COLOR,URINE YELLOW; GLUCOSE, URINE NEGATIVE (NEGATIVE); KETONES,URINE NEGATIVE (NEGATIVE); LEUKOCYTE ESTERASE,URINE MODERATE (NEGATIVE); NITRITE,URINE NEGATIVE (NEGATIVE); PROTEIN,URINE NEGATIVE (NEGATIVE); URINE SPECIFIC GRAVITY 1.021; UROBILINOGEN,URINE NEGATIVE mg/dL (<2.0)
[~2018-03-15 09:46] MED LIST: BUPIVACAINE HCL 0.25 % INJ/PF (2.5 MG/1 ML) 30 ML VIAL ONE; LACTATED RINGERS 1000 ML IV PRN; LIDOCAINE 0.5% INJ-PF (5 MG/ML) 50 ML SDV SUBCUT PRN
[2018-03-15] MEDS ORDERED: ROCURONIUM BROMIDE INJ 50 MG/5 ML VIAL IV ONE (11:00)
[2018-03-15] MEDS ORDERED: GLYCOPYRROLATE 1 MG/5 ML SYRINGE ONE (11:00)
[2018-03-15] MEDS ORDERED: SUCCINYLCHOLINE CHLORIDE INJ 200 MG/10 ML VIAL ONE (11:00)
[2018-03-15] MEDS ORDERED: DEXAMETHASONE SOD PHOSPHATE INJ 4 MG/1 ML VIAL ONE (11:00)
[2018-03-15] MEDS ORDERED: KETOROLAC TROMETHAMINE 60 MG/2 ML SDV ONE (11:00)
[2018-03-15] MEDS ORDERED: LIDOCAINE 2% INJ-PF (20 MG/ML) 2 ML AMPUL ONE (11:00)
[2018-03-15] MEDS ORDERED: NEOSTIGMINE METHYLSULFATE 10 MG/10 ML VIAL ONE (11:00)
[2018-03-15] MEDS ORDERED: ONDANSETRON HCL INJ/PF 4 MG/2 ML SDV ONE (11:00)
[2018-03-15] MEDS ORDERED: FENTANYL CITRATE INJ/PF 100 MCG/2 ML AMPUL ONE (11:35)
[2018-03-15] MEDS ORDERED: MIDAZOLAM 2 MG/2 ML INJ ONE (11:35)
[2018-03-15] MEDS ORDERED: MORPHINE SULFATE 10 MG/ML INJ ONE (11:36)
[2018-03-15] MEDS ORDERED: PROPOFOL INJ 200 MG/20 ML VIAL IV ONE (11:37)
[2018-03-15] MEDS ORDERED: OXYCODONE-ACETAMINOPHEN 5-325 MG TABLET ONE (13:52)
[2018-03-15] MEDS ORDERED: DIPHENHYDRAMINE HCL 50 MG/ML VIAL IV PRN (14:01)
[2018-03-15] MEDS ORDERED: PROMETHAZINE HCL INJ 25 MG/1 ML VIAL IV PRN (14:01)
[2018-03-15] MEDS ORDERED: FENTANYL CITRATE INJ/PF 100 MCG/2 ML AMPUL IV PRN (14:01)
[2018-03-15] MEDS ORDERED: MEPERIDINE HCL/PF INJ 25 MG/1 ML DISP.SYRIN IV PRN (14:01)
[2018-03-15] MEDS ORDERED: RINGERS SOLUTION,LACTATED 1,000 ML IV PRN (14:08)
[2018-03-15] MEDS ORDERED: HYDROMORPHONE HCL INJ/PF 2 MG/ML AMPULE IV PRN (14:09)
[2018-03-15] MEDS ORDERED: OXYCODONE-ACETAMINOPHEN 5-325 MG TABLET PO PRN ×2 (14:10→14:11)
[2018-03-15] MEDS ORDERED: ONDANSETRON HCL INJ/PF 4 MG/2 ML SDV IV PRN (14:13)
[2018-03-15] MEDS ORDERED: IBUPROFEN 800 MG TABLET PO PRN (14:24)
[2018-03-15 15:49] VITALS: BP 128/71
--- NOTE | 2018-03-20 16:51 | Operative Report ---
Operative Report DATE OF SURGERY: 03/15/18 PREOPERATIVE DIAGNOSIS: Undesired fertility POSTOPERATIVE DIAGNOSIS: AUDRA OPERATION: Laparoscopic Bilateral Tubal Ligation with Filschie Clips SURGEON: JUEVNAL HERRERA ANESTHESIA: GA TISSUE REMOVED OR ALTERED: none COMPLICATIONS: none ESTIMATED BLOOD LOSS: less than 10ml INTRAOPERATIVE FINDINGS: normal bilateral tubes/ovaries, normal uterus, Bilateral tubes filschie clips times 2 placed in mid ampullary portion of fallopian tubes PROCEDURE: Anesthesiologist: Jimbo Hernandez MD, CRNA IV fluids: [850ml] Urine output: [170ml] Indications: [28yo with undesired fertility. She is 100% sure that she has completed childbearing. The risks, benefits, alternatives were reviewed and she desires to proceed with planned procedure.] Procedure: The patient was taken to the operating room where general anesthesia was obtained without difficulty. The patient was then examined under anesthesia with findings as noted above with a small anteverted uterus. She was then placed in dorsal supine lithotomy position and prepped and draped in the normal sterile fashion. [place] speculum was then placed in the patient's vagina and the anterior lip of the cervix grasped with a single-tooth tenaculum. A sponge stick was placed into the vagina to provide a means of manipulation of the uterus. The speculum and tenaculum were then removed from the patient's cervix and vagina. Attention was then turned to the patient's abdomen where a 5 mm infraumbilical skin incision was then made. The Optiview trocar with 0 laparoscope was then advanced without difficulty under direct visualization with the Optiview trocar. This was performed while tenting the abdominal wall and these will fashion. Intraperitoneal placement was confirmed by the direct visualization. Pneumoperitoneum was then obtained with approximately 4 L carbon dioxide gas. Survey of the patient's abdomen and pelvis revealed findings as noted above. A second skin incision was then made approximately 2cm above the symphysis pubis in the midline. The incision was made under direct visualization with the laparoscope. The second trochar weas then advanced under direct visualization of the laparoscope at the site. The right fallopian tube was then identified and followed out to the fimbriated end and the Filschie clips placed times two in the mid ampullary portion of the fallopian tube. Attention was then turned to the left adnexa at which time the left fallopian tube was identified and followed out to the fimbriated end. Filschie clips times two was placed in the mid ampullary portion fo the left fallopian tube. All operative sites were visualized and noted to be hemostatic. The additional trochar was thgen removed under direct visualization. The inframumbilical trocar was then removed after abdominal insufflation was removed. The skin at all trocar sites were closed with 3-0 Monocryl in a subcuticular fashion with overlying Dermabond. No antibiotics were indicated for this procedure. After completion of skin closure of the trocar sites attention was then turned to the vagina where the sponge stick was removed. Silver nitrate was applied to the tenaculum sites for hemostasis and the speculum was removed. Sponge lap needle and instrument counts were correct 3. The patient tolerated the procedure well and was taken to the recovery area awake and in stable condition.
== END 2018-03-15 15:20 | disposition home or self-care (01) ==
LOC: OROUT 09:46
PROVIDERS: ATTEND Student in an Organized Health Care Education/Training Program
DX: Z30.2 Encounter for sterilization (principal); Z87.891 Personal history of nicotine dependence
CPT/HCPCS: 36415; 85027; 81005; 81025; 58671; J2250; J3490 ×3; J1100; J1885; J3010; J0330; J2405; S0020; J2704; 851; J2270

== ENCOUNTER 2020-01-31 08:06 | Emergency (ER) | payer BC, MEDICAID ==
[2020-01-31] MEDS ORDERED: IBUPROFEN 600 MG TABLET PO ONE (10:12)
--- NOTE | 2020-01-31 10:18 | ER Document Report ---
ED Hip Pain/Injury - General Chief Complaint: Buttock Injury Stated Complaint: FALL,BUTT PAIN Time Seen by Provider: 01/31/20 10:11 Primary Care Provider: LANEY MONTANEZ JR, DO [ACTIVE PROVISIONAL STAFF] - Follow up as needed Mode of Arrival: Ambulatory Information source: Patient Notes: 29-year-old female presented to ED for pain in her coccyx area from last night. She states that during this sexual intercourse she injured her coccyx bone and has had pain sitting down or bending since then. States the only time she felt anything like this was last time she gave to her daughter and this is much worse than that time. We will treat with ibuprofen give get x-rays and and discussed results with patient. Constitutional: Negative for fever. HENT: Negative for sore throat. Eyes: Negative for visual changes. Cardiovascular: Negative for chest pain. Respiratory: Negative for shortness of breath. Gastrointestinal: Negative for abdominal pain, vomiting or diarrhea. Genitourinary: Negative for dysuria. Musculoskeletal: Pain in the coccyx area pain with bending Skin: Negative for rash. Neurological: Negative for headaches, weakness or numbness. 10 point ROS negative except as marked above and in HPI. VITAL SIGNS: Within normal limits. GENERAL: No acute distress, non-toxic appearance. HEAD: Normal with no signs of head trauma. EYES: PERRLA, EOMI, conjunctiva normal, no discharge. EARS: Hearing grossly intact. NOSE: Normal. THROAT: Oropharynx is normal. NECK: Normal range of motion, no tenderness, supple, no lymphadenopathy, No adenopathy, no JVD. CHEST: Clear breath sounds bilaterally. No wheezes, rales, or rhonchi. CARDIAC: Regular rate and rhythm. S1 and S2, without murmurs, gallops, or rubs. VASCULAR: No Edema. Peripheral pulses normal and equal in all extremities. ABDOMEN: Normal and soft with no tenderness, no masses or pulsatile masses. GASTROINTESTINAL: Bowel sounds normal GENITOURINARY: Normal, No tenderness LYMPATHTIC: No lymphadenopathy noted. MUSCULOSKELETAL: Pain with any movement or palpation to the coccyx and sacral area. NEUROLOGICAL: Alert and oriented x 3. No focal sensory or strength deficits. Speech normal. Follows commands appropriately. PSYCHIATRIC: Normal Affect, judgement and mood. SKIN: Normal appearance with no rashes or lesions. TRAVEL OUTSIDE OF THE [place] IN LAST 30 DAYS: No - HPI Patient complains to provider of: Injury, Pain, Pelvis Occurred: Yesterday Where: Home, Indoors Onset/Duration: Sudden, Persistent Quality of pain: Achy, Dull, Sharp Severity: Moderate Pain Level: 3 Symptoms prior to fall: None Symptoms since fall: None Skin Color: Pale Associated Symptoms: None - Related Data Allergies/Adverse Reactions: No Known Allergies Allergy (Verified 01/31/20 09:44) Past Medical History - General Information source: Patient - Social History Smoking Status: Current Every Day Smoker Cigarette use (# per day): Yes - 2 Chew tobacco use (# tins/day): No Frequency of alcohol use: None Drug Abuse: None Lives with: Alone Family History: Reviewed & Not Pertinent Patient has suicidal ideation: No Patient has homicidal ideation: No - Past Medical History Cardiac Medical History: Reports: Hx Hypertension - WITH Pulmonary Medical History: Reports: None EENT Medical History: Reports: None Neurological Medical History: Reports: None Endocrine Medical History: Reports: None Renal/ Medical History: Reports: None Malignancy Medical History: Reports: None GI Medical History: Reports: None Musculoskeletal Medical History: Reports None Skin Medical History: Reports None Psychiatric Medical History: Reports: None Traumatic Medical History: Reports: None Infectious Medical History: Reports: None Past Surgical History: Reports: Hx Appendectomy, Hx Gynecologic Surgery - 1/2 left ovary removed, Hx Inguinal Hernia - Immunizations Immunizations up to date: Yes Hx Diphtheria, Pertussis, Tetanus Vaccination: Yes - 2017 Physical Exam - Vital signs Vitals: Temp Pulse Resp BP Pulse Ox 98.5 F 110 H 16 114/82 99 01/31/20 08:09 01/31/20 08:09 01/31/20 08:09 01/31/20 08:09 01/31/20 08:09 Course - Re-evaluation Re-evalutation: 01/31/20 11:04 You do have a probable fracture of the sacrum and coccyx. These you need to follow-up with orthopedic. You can call and follow-up within 3 to 5 days. Ibuprofen every 8 hours and you can take Tylenol in between if you need further pain. I recommended to get a donut to sit on. There are many types she can get the Gelfoam ones you can get the ones you blow up or he could just get a body pillow it should help. Something to help you to relieve the pressure from this area. Also walking will help you as you know from when you had your baby. - Vital Signs Vital signs: Temp Pulse Resp BP Pulse Ox 98.3 F 96 16 130/90 H 100 01/31/20 11:09 01/31/20 11:09 01/31/20 11:09 01/31/20 11:09 01/31/20 11:09 - Diagnostic Test Radiology reviewed: Image reviewed, Reports reviewed Discharge - Discharge Clinical Impression: Fractured coccyx Qualifiers: Encounter type: initial encounter Fracture type: closed Qualified Code(s): S32.2XXA - Fracture of coccyx, initial encounter for closed fracture Sacral fracture, closed Qualifiers: Encounter type: initial encounter Zone of sacrum fracture: unspecified portion of sacrum Qualified Code(s): S32.10XA - Unspecified fracture of sacrum, initial encounter for closed fracture Condition: Stable Disposition: HOME, SELF-CARE Additional Instructions: Coccyx Fracture Your painful tailbone is due to a fracture of the "coccyx," the bone at the end of the spine. While quite painful, this injury isn't serious. In fact, it's really not important whether the bone is fractured or not -- the treatment is the same. In general, this injury is treated by cold-packing the area and resting for a few days. Once you are active again, you may find that a "donut" seat cushion (often used after delivering a baby) helps you sit more comfortably. Match your physical activity to the pain -- don't do things that hurt. Avoid constipation by getting lots of fiber. Expect about three or four weeks before you are painfree. You should call the doctor or return for re-examination if the pain becomes severe, or if you fail to improve as expected. You do have a probable fracture of the sacrum and coccyx. These you need to follow-up with orthopedic. You can call and follow-up within 3 to 5 days. Ibuprofen every 8 hours and you can take Tylenol in between if you need further pain. I recommended to get a donut to sit on. There are many types she can get the Gelfoam ones you can get the ones you blow up or he could just get a body pillow it should help. Something to help you to relieve the pressure from this area. Also walking will help you as you know from when you had your baby. Ibuprofen Ibuprofen is an excellent, safe drug for pain control. In addition, it has potent antiinflammatory effects which are beneficial, especially in the treatment of injuries, arthritis, or tendonitis. It's best to take ibuprofen with food. Persons with ulcer disease or allergy to aspirin should notify their physician of this before taking ibuprofen. Take the medication exactly as prescribed. Don't take additional doses unless instructed to do so by your doctor. If you develop wheezing, shortness of breath, hives, faintness, stomach pain, vomiting, or dark black stools, return for re-evaluation at once. Ice Packs Apply ice packs frequently against the painful area. Many different schedules are recommended, such as "20 minutes on, 20 minutes off" or "one hour ice, two hours rest." If you need to work, you may need to go longer between ice treatments. You should plan to have the area ice packed AT LEAST one fourth of the time. The ice should be applied over the wrap, tape, or splint, or over a layer of cloth -- not directly against the skin. Some ice bags have a built-in cloth and can be put directly on the skin. FOLLOW-UP CARE: If you have been referred to a physician for follow-up care, call the physicians office for an appointment as you were instructed or within the next two days. If you experience worsening or a significant change in your symptoms, notify the physician immediately or return to the Emergency Department at any time for re-evaluation. Forms: Smoking Cessation Education, Return to Work Referrals: LANEY MONTANEZ JR, [ACTIVE PROVISIONAL STAFF] - Follow up as needed
--- NOTE | 2020-01-31 10:54 | RADIOLOGY REPORT (SQ) ---
EXAM DESCRIPTION: SACRUM AND COCCYX IMAGES COMPLETED DATE/TIME: 01/31/2020 9:39 am REASON FOR STUDY: pain and injury COMPARISON: None. NUMBER OF VIEWS: Three views. TECHNIQUE: AP, lateral, and tilt views of the sacrum and coccyx. LIMITATIONS: None. FINDINGS: MINERALIZATION: Normal. BONES: There is angulation of the distal tip of the coccyx approximately 90, possibly representing a n acute distal fracture. Possible cortical irregularity at the mid sacrum also seen on lateral view, not definitely identified on AP view, possibly additional nondisplaced fracture of the sacrum. The sacral ala appear intact. Normal alignment at the sacroiliac joints without widening. Visualized pe lvis is intact. SOFT TISSUES: No soft tissue abnormality. Surgical clips in the pelvis. OTHER: No other significant finding. IMPRESSION: Probable acute minimally displaced fracture of the coccyx. Possible nondisplaced fractu re body of the sacrum. TECHNICAL DOCUMENTATION: JOB ID: [id number] 2010 [employer]- All Rights Reserved Reading location - IP/workstation name: [email or web address]
[2020-01-31] MEDS ORDERED: LIDOCAINE 5% (700 MG) TRANSDERMAL ADH..PATCH TP ONE (11:03)
[2020-01-31 11:10] VITALS: BP 130/90
--- OUTSIDE RECORDS SUMMARY | 2020-02-01 15:14 | XMS REPORT ---
:1990 [facility] Address [address] [address] Care Team Providers Name Role Phone Alexandr Attending Clinician Unavailable Allergies, Adverse Reactions, Alerts This patient has no known allergies or adverse reactions. Medications This patient has no known medications. Problems This patient has no known problems. Procedures Procedure Date / Time Performed Performing Clinician Devi e OFFICE/OUTPATIENT VISIT NEW 2019-11-20 11:30:00 Results Test Description Test Time Test Comments Text Results Atomic Results Result Comments SARS-CoV-2, MARU\S\ 2019-11-20 12:15:00 Test Item Value Reference Range Comments SARS-CoV-2, MARU (test code = 93122-0) Detected Not Detect ed Assessments Condition Name Status Diagnosis Date Treating Clinici an Nasal congestion Active Other headache syndrome Active Diarrhea, unspecified Active Body mass index (BMI) 28.0-28.9, adult Active Encounters Start End Encounter Admission Attending Care Care Encounter Date/Time Date/Time Type Type Clinicians Facility Department ID 2019-11-20 2019-11-20 Outpatient Destiney Strange [facility] [place] Angelica myers [id number] 11:30:00 11:30:00 Children [id number] s [id number] and [id number] [facility], Social History This patient has no known social history. Vital Signs This patient has no known vital signs.
== END 2020-01-31 11:15 | disposition home or self-care (01) ==
LOC: ER 08:06
DX: S32.2XXA Fracture of coccyx, initial encounter for closed fracture (principal); S32.10XA Unspecified fracture of sacrum, initial encounter for closed fracture; X58.XXXA Exposure to other specified factors, initial encounter; F17.210 Nicotine dependence, cigarettes, uncomplicated
CPT/HCPCS: 72220; 99283